=== PATIENT | male | born 1995 | race Caucasian/White ===

== ENCOUNTER 2018-04-16 18:45 | Emergency (ER) | payer OTHER ==
[2018-04-16] MEDS: NAPROXEN 250 MG TAB PO (22:00)
[2018-04-16 22:19] LABS: INFLUENZA A AMPLIFICATION NEGATIVE (NEGATIVE); INFLUENZA B AMPLIFICATION NEGATIVE (NEGATIVE)
== END 2018-04-16 22:52 | disposition home or self-care (01) ==
LOC: M ED 18:45
DX: J06.9 Acute upper respiratory infection, unspecified (principal)
CPT/HCPCS: 87502

== ENCOUNTER 2018-04-25 16:57 | Emergency (ER) | payer OTHER ==
[2018-04-25] MEDS: AMOXICILLIN 500 MG CAP PO (20:30)
[2018-04-25] MEDS: IBUPROFEN 600 MG TAB PO (20:30)
== END 2018-04-25 20:50 | disposition home or self-care (01) ==
LOC: M ED 16:57
DX: J02.0 Streptococcal pharyngitis (principal)
CPT/HCPCS: 99283